=== PATIENT | male | born 1955 | race Caucasian/White ===

== ENCOUNTER 2017-10-08 12:34 | Emergency (ER) | payer OTHER ==
--- NOTE | 2017-10-08 12:55 | ED Physician Chart ---
ED Chief Complaint/HPI - Patient Information Date Seen:: 10/08/17 Time Seen:: 12:49 Chief Complaint:: Back pain History of Present Illness:: 61 yo right-handed male had history of low back pain for 30 years and was a left kidney donor in 1982. Had MRI lumbar spine 10 years ago. 3 years ago had attack of low back pain with muscle spasm. Recently, patient had low back pain for 3 days with muscle spasm and difficulty ambulating. Baclofen 5mg did not help. Took Tramadol and Tylenol for fibromyalgia. No urinary incontinence. Went to [place] [facility] 2 days ago, received morphine, flexeril, and valium. D/c with flexeril and norco. Patient still had low back pain and spasm worsened by changing body position. ED Review of Systems - Review of Systems General/Constitutional: No fever Skin: No skin lesions Head: No headache Eyes: No pain ENT: No earache Neck: No neck pain Cardio Vascular: edema Pulmonary: No SOB GI: No nausea, No vomiting Musculoskeletal: Back pain ED Past Medical History - Past Medical History Past Medical History: Other (low back pain ) Social History: Non Smoker, No Alcohol, No Drug Use Surgical History: Cholecystectomy (2006) Family Medical History - Family Member Mother History Unknown: Yes ED Physical Exam - Physical Examination General/Constitutional: Awake, Alert Head: Atraumatic Eyes: PERRL Skin: No ecchymosis ENMT: Nasal exam nl Neck: No nuchal rigidity Respiratory: No Wheeze/Rhonchi/Rales Cardio Vascular: RRR, No murmur, gallop, rubs, NL S1 S2 GI: No tenderness/rebounding/guarding Other Extremities comments:: 2+ diffuse edema in BLE. Right EHL 4/5, left EHL 5/5. Lumbar spine painful ROM with spasm ED Labs/Radiology/EKG Results - Radiology Results Results: Lumbar spine x ray: degenerative changes, loss of lordosis ED Assessment - Assessment General Assessment: Lumbago with muscle spasm Possible right lumbar radiculopathy Assessment/Comments:: CBC, CMP L-spine X ray Morphine Solu-medrol Valium D/c home Medrol dose pack Lumbar brace F/u PCP for referral to physical therapy ED Septic Shock - . Is Septic Shock (SBP<90, OR Lactate>4 mmol\L) present?: No ED Reassessment (Disposition) - Reassessment Reassessment Condition:: Improved - Patient Disposition Discharge/Transfer:: Home ED Discharge Plan - Patient Disposition Admit/Discharge/Transfer: PT DISCHARGED HOME Condition at Disposition: Improved Instructions: Muscle Cramps and Spasms, Back Pain, Adult Additional Instructions: Follow up with your primary care doctor in 1-3 days. Return to Emergency Department if worse. Take Medrol medication as directed. Accepting Physician: Mal Smith [Active] -
[2017-10-08] MEDS ORDERED: Morphine Sulfate 2 mg/mL 1mL Syr IVP STA (13:16)
[2017-10-08] MEDS ORDERED: Morphine Sulfate 2 mg/mL 1mL Syr ONE (13:23)
[2017-10-08 13:25] LABS: % BASOPHILS 0.2 % (0.0-2.0); % EOSINOPHILS 1.5 % (0.0-5.0); % LYMPHOCYTES 24.8 % (20.0-50.0); % MONOCYTES 4.3 % (2.0-10.0); % NEUTROPHILS 69.2 % (40.0-80.0); EOSINOPHILE ABSOLUTE 0.1 Th/cmm (0.1-0.4); HEMATOCRIT 45.2 % (41.0-60); HEMOGLOBIN 15.3 gm/dL (12-16); MEAN CELL VOLUME 86.4 fl (80-99); MEAN CORPUSCULAR HEMOGLOBIN 29.2 pg (26.0-30.0); MEAN CORPUSCULAR HGB CONC 33.7 pg (28.0-36.0); MEAN PLATELET VOLUME 7.8 fl; MONOCYTE ABSOLUTE 0.3 Th/cmm (0.3-1.0); NEUTROPHILE ABSOLUTE 5.6 Th/cmm (1.8-8.0); PLATELET COUNT 135 Th/cmm (150-400); RED BLOOD COUNT 5.23 Mil/cmm (4.30-5.70); RED CELL DISTRIBUTION WIDTH 13.2 % (11.5-20.0)
[2017-10-08 13:41] LABS: ALB/GLOB RATIO 1.5 (1.0-1.8); ALBUMIN 4.1 gm/dL (4.2-5.5); ALKALINE PHOSPHATASE 69 U/L (34-104); ANION GAP 8.2 (7.0-16.0); BILIRUBIN,TOTAL 0.9 mg/dL (0.3-1.0); BUN - UREA NITROGEN 21 mg/dL (7-25); CALCIUM SERUM 9.7 mg/dL (8.6-10.3); CARBON DIOXIDE 22.8 mEq/L (21.0-31.0); CHLORIDE 109 mEq/L (98-107); CREATININE - SERUM 1.4 mg/dL (0.7-1.3); GFR AFRICAN-AMERICAN > 60.0 ml/min (>90); GFR NON AFRICAN-AMERICAN 54.9 ml/min; GLUCOSE 192 mg/dL (70-105); SGOT 15 U/L (13-39); SGPT/ALT 20 U/L (7-52); SODIUM SERUM 136 mEq/L (136-145); TOTAL PROTEIN,SERUM 6.9 gm/dL (6.0-8.3)
[2017-10-08 21:58] LABS: A1C % 7.3 % (4.0-6.0)
--- NOTE | 2017-10-09 09:50 | Diagnostic Imaging Report ---
Lumbar spine (3 views) HISTORY: Pain Alignment is normal. Disc spaces are maintained. Small spur formation noted about the endplates of L2, L3, and to a slightly greater degree L4 and L5. No other focal bony lesions. IMPRESSION: 1. Mild degenerative changes 2. No acute abnormalities
== END 2017-10-08 15:13 | disposition home or self-care (01) ==
LOC: ER 12:34
DX: M54.5 Low back pain (principal)
CPT/HCPCS: 99285; 96374; 96375; 72110; 83880; 36415; 85025; 83036; 80053; J2270; J2930